=== PATIENT | male | born 1960 | race Two or more races ===

== ENCOUNTER 2020-08-24 16:03 | Outpatient (CLI) | payer BC | END 2020-08-24 16:04 | disposition home or self-care (01) | LOC: CTENTCT 16:03 | PROVIDERS: ATTEND Specialist | DX: J32.9 Chronic sinusitis, unspecified (principal) | CPT/HCPCS: 70486 ==

== ENCOUNTER 2020-09-17 13:11 | Outpatient (CLI) | payer BC ==
[2020-09-18 04:20] LABS: SARS-CoV-2 PCR by NAA Not Detected (NotDetected)
== END 2020-09-17 13:12 | disposition home or self-care (01) ==
LOC: LABBT 13:11
PROVIDERS: ATTEND Specialist
DX: Z01.818 Encounter for other preprocedural examination (principal); Z20.822 Contact with and (suspected) exposure to COVID-19
CPT/HCPCS: 87635; 93005; 93010; U0003; U0005

== ENCOUNTER 2020-09-20 07:27 | Day surgery (SDC) | payer BC ==
[2020-09-19 10:22] VITALS: BMI 24.7
[2020-09-20] MEDS ORDERED: AFRIN NASAL MIST 15 ML BOT ONE ×2 (08:15→08:28)
[2020-09-20] MEDS ORDERED: EPINEPHrine 1 MG/ML AMP ONE (08:27)
[2020-09-20] MEDS ORDERED: Lidocaine 1% w/Epinephrine 1:100K 20 ML VIAL ONE (08:27)
[2020-09-20] MEDS ORDERED: Bacitracin Zinc Ointment 30 gm TUBE ONE (08:28)
[2020-09-20] MEDS ORDERED: Fentanyl 100 MCG/2 ML VIAL ONE ×2 (08:29→10:46)
[2020-09-20] MEDS ORDERED: Ketorolac Tromethamine 30 MG/ML VIAL ONE (09:13)
[2020-09-20] MEDS ORDERED: Ondansetron PF 4 MG/2 ML Vial ONE (09:13)
[2020-09-20] MEDS ORDERED: Lidocaine 1% PF 5 ML VIAL ONE (09:13)
[2020-09-20] MEDS ORDERED: PROPOFOL 200 MG/20 ML VIAL ONE (09:13)
[2020-09-20] MEDS ORDERED: ePHEDrine 50 MG/ML VIAL ONE (09:13)
[2020-09-20] MEDS ORDERED: Dexamethasone 20 MG/5 ML VIAL ONE (09:13)
[2020-09-20] MEDS ORDERED: Glycopyrrolate 0.2 MG/ML 5 ML SYRINGE ONE (09:13)
[2020-09-20] MEDS ORDERED: Rocuronium Bromide 10 MG/ML (10ML VIAL) ONE (09:13)
== END 2020-09-20 12:35 | disposition home or self-care (01) ==
LOC: SDC 07:27
PROVIDERS: ATTEND Specialist
PROC: 09BS8ZZ Excision of Right Frontal Sinus, Via Natural or Artificial Opening Endoscopic (ICD-10-PCS; principal; 2020-09-20)
PROC: 09BT8ZZ Excision of Left Frontal Sinus, Via Natural or Artificial Opening Endoscopic (ICD-10-PCS; principal; 2020-09-20)
PROC: 09TL8ZZ Resection of Nasal Turbinate, Via Natural or Artificial Opening Endoscopic (ICD-10-PCS; principal; 2020-09-20)
PROC: 09SM0ZZ Reposition Nasal Septum, Open Approach (ICD-10-PCS; principal; 2020-09-20)
PROC: 099R8ZZ Drainage of Left Maxillary Sinus, Via Natural or Artificial Opening Endoscopic (ICD-10-PCS; principal; 2020-09-20)
PROC: 09JY8ZZ Inspection of Sinus, Via Natural or Artificial Opening Endoscopic (ICD-10-PCS; principal; 2020-09-20)
PROC: 09BL8ZZ Excision of Nasal Turbinate, Via Natural or Artificial Opening Endoscopic (ICD-10-PCS; principal; 2020-09-20)
PROC: 099Q8ZZ Drainage of Right Maxillary Sinus, Via Natural or Artificial Opening Endoscopic (ICD-10-PCS; principal; 2020-09-20)
PROC: 09BV8ZZ Excision of Left Ethmoid Sinus, Via Natural or Artificial Opening Endoscopic (ICD-10-PCS; principal; 2020-09-20)
PROC: 09BU8ZZ Excision of Right Ethmoid Sinus, Via Natural or Artificial Opening Endoscopic (ICD-10-PCS; principal; 2020-09-20)
DX: J01.91 Acute recurrent sinusitis, unspecified (principal); J32.9 Chronic sinusitis, unspecified; J34.2 Deviated nasal septum; J34.3 Hypertrophy of nasal turbinates; J34.89 Other specified disorders of nose and nasal sinuses; J30.2 Other seasonal allergic rhinitis; J30.1 Allergic rhinitis due to pollen; J30.81 Allergic rhinitis due to animal (cat) (dog) hair and dander; J30.89 Other allergic rhinitis; E78.5 Hyperlipidemia, unspecified; F32.9 Major depressive disorder, single episode, unspecified; E78.00 Pure hypercholesterolemia, unspecified; Z79.899 Other long term (current) drug therapy
CPT/HCPCS: J0171; J1100; J1885; J2405; J2704; J3010; J3490